=== PATIENT | male | born 1965 | race Caucasian/White ===

== ENCOUNTER 2018-12-26 09:56 | Day surgery (SDC) | payer OTHER ==
[~2018-12-26] VITALS: Ht 182.9 cm; Wt 81.0 kg
[2018-12-26 11:44] VITALS: BP 107/54; PULSE 52; RESP 20
[2018-12-26] MEDS ORDERED: NO ACTIVE MEDS (11:56)
[2018-12-26] MEDS ORDERED: MIDAZOLAM 1 MG/ML 2 ML INJ ONE ×2 (12:46)
[2018-12-26] MEDS ORDERED: FENTAnyl 50 MCG/ML VIAL ONE (12:46)
[2018-12-26 13:05] VITALS: BP 97/63; RESP 20
[2018-12-26 13:40] VITALS: BP 138/84; PULSE 84; RESP 20
== END 2018-12-26 14:02 | disposition home or self-care (01) ==
LOC: GIL 09:56
PROVIDERS: ATTEND Internal Medicine Gastroenterology
DX: Z12.11 Encounter for screening for malignant neoplasm of colon (principal); D12.2 Benign neoplasm of ascending colon; K57.30 Diverticulosis of large intestine without perforation or abscess without bleeding
CPT/HCPCS: 45380; 88305; J2250; J3010; Z7610